=== PATIENT | female | born 1950 | race Caucasian/White ===

== ENCOUNTER → 2017-09-22 | Outpatient (CLI) | payer MEDICARE ==
[~2017-09-22] MED LIST: LASIX 40MG TABL40 MG PO; MOTRIN 200200 MG/TAB PO; SYNTHROID0.05 MG/TA PO; SYNTHROID0.2 MG/TAB PO
== END ==
LOC: MHCPAIN 10:49
DX: G89.29 Other chronic pain (principal); M47.817 Spondylosis without myelopathy or radiculopathy, lumbosacral region; M54.16 Radiculopathy, lumbar region; M53.3 Sacrococcygeal disorders, not elsewhere classified
CPT/HCPCS: G0463

== ENCOUNTER → 2017-09-22 | Outpatient (CLI) | payer MEDICARE | LOC: COL.RAD 11:48 | DX: M16.11 Unilateral primary osteoarthritis, right hip (principal) ==

== ENCOUNTER → 2017-10-27 | Outpatient (CLI) | payer MEDICARE | LOC: MHCPAIN 08:47 | DX: G89.29 Other chronic pain (principal); M47.817 Spondylosis without myelopathy or radiculopathy, lumbosacral region; M54.16 Radiculopathy, lumbar region; M53.3 Sacrococcygeal disorders, not elsewhere classified; M47.814 Spondylosis without myelopathy or radiculopathy, thoracic region; M25.551 Pain in right hip | CPT/HCPCS: G0463 ==

== ENCOUNTER → 2017-11-05 | Outpatient (CLI) | payer MEDICARE | LOC: MHCPAIN 10:19 | DX: M47.817 Spondylosis without myelopathy or radiculopathy, lumbosacral region (principal) | CPT/HCPCS: J1040; Q9967 ==

== ENCOUNTER → 2017-11-16 | Outpatient (CLI) | payer MEDICARE | LOC: MHCPAIN 10:35 | DX: G89.29 Other chronic pain (principal); M47.817 Spondylosis without myelopathy or radiculopathy, lumbosacral region; M54.16 Radiculopathy, lumbar region; M53.3 Sacrococcygeal disorders, not elsewhere classified | CPT/HCPCS: G0463 ==

== ENCOUNTER → 2017-11-26 | Outpatient (CLI) | payer MEDICARE | LOC: MHCPAIN 10:32 | DX: M47.817 Spondylosis without myelopathy or radiculopathy, lumbosacral region (principal); M54.16 Radiculopathy, lumbar region | CPT/HCPCS: J1100; Q9967 ==

== ENCOUNTER → 2017-12-29 | Outpatient (CLI) | payer MEDICARE | LOC: COL.RAD 13:39 | DX: M17.0 Bilateral primary osteoarthritis of knee (principal) ==

== ENCOUNTER → 2017-12-29 | Outpatient (CLI) | payer MEDICARE | LOC: MHCPAIN 12:35 | DX: G89.29 Other chronic pain (principal); M47.817 Spondylosis without myelopathy or radiculopathy, lumbosacral region; M54.16 Radiculopathy, lumbar region; M53.3 Sacrococcygeal disorders, not elsewhere classified; M47.814 Spondylosis without myelopathy or radiculopathy, thoracic region; M48.061 Spinal stenosis, lumbar region without neurogenic claudication | CPT/HCPCS: G0463 ==

== ENCOUNTER → 2018-01-07 | Outpatient (CLI) | payer MEDICARE | LOC: MHCPAIN 12:41 | DX: M17.0 Bilateral primary osteoarthritis of knee (principal) | CPT/HCPCS: J1040; Q9967 ==

== ENCOUNTER → 2018-03-30 | Outpatient (CLI) | payer MEDICARE | LOC: MHCPAIN 12:25 | DX: G89.29 Other chronic pain (principal); M47.817 Spondylosis without myelopathy or radiculopathy, lumbosacral region; M54.16 Radiculopathy, lumbar region; M53.3 Sacrococcygeal disorders, not elsewhere classified; M48.061 Spinal stenosis, lumbar region without neurogenic claudication | CPT/HCPCS: G0463 ==

== ENCOUNTER → 2018-08-25 | Outpatient (CLI) | payer MEDICARE | LOC: MC.RAD 08:06 | DX: Z12.31 Encounter for screening mammogram for malignant neoplasm of breast (principal) ==

== ENCOUNTER 2019-05-08 17:29 | Inpatient (IN) | payer MEDICARE ==
[~2019-05-08] VITALS: Ht 160 cm; Wt 82.7 kg
[2019-05-08 18:16] LABS: BASO # 0.1 (0.0-0.2); BASO % 0.7 % (0.0-2.0); EOS # 0.1 (0.0-0.7); EOS % 0.6 % (0-4.0); GRAN # 8.7 (1.4-6.5); GRAN % 80.6 % (42.2-75.2); HEMOGLOBIN 10.7 g/dl (12.5-16.0); LYMPH # 1.3 (1.2-3.4); MEAN CELL VOLUME 77 fl (80.0-100.0); MEAN CORPUSCULAR HEMOGLOBIN 23 pg (27.0-31.0); MEAN CORPUSCULAR HGB CONC 30 g/dl (33.0-37.0); MEAN PLATELET VOLUME 9.2 fl (7.4-10.4); MONO # 0.6 (0.1-0.6); MONO % 5.7 % (1.7-9.3); PLATELET COUNT 514 K/mm3 (130-400); RED BLOOD COUNT 4.59 M/mm3 (4.10-5.30); REDCELL DISTRIBUTION WIDTH-CV 15.5 % (11.5-14.5)
[2019-05-08 18:17] LABS: HEMATOCRIT 35.3 % (37.0-47.0)
[2019-05-08 18:30] LABS: ALBUMIN 4.3 gm/dL (3.5-5.0); BILIRUBIN,TOTAL 0.5 mg/dL (0.0-1.0); CALCIUM 9.7 mg/dL (8.4-10.2); CREATININE, serum 0.94 (0.52-1.25); POTASSIUM 3.8 mmol/L (3.4-5.0); TOTAL PROTEIN 8.5 gm/dL (6.4-8.2)
[2019-05-08] MEDS ORDERED: TYLENOL 500MG500 MG PO (18:34)
[2019-05-08] MEDS ORDERED: CALCIUM 600MG+D1 TAB PO (18:34)
[2019-05-08] MEDS ORDERED: ULTRAM 50MG TAB50 MG PO (18:36)
[2019-05-08] MEDS ORDERED: SYNTHROID 0.0.025 MG PO (18:36)
[2019-05-08] MEDS ORDERED: VITAMIN B COMPL1 SGL PO (18:37)
[2019-05-08 21:00] LABS: COLLECTION METHOD CLEAN CATCH
[2019-05-08 21:09] LABS: MUCOUS Present /lpf; PH 6 (5-8); URINE APPEARANCE Cloudy; URINE BACTERIA None Seen /hpf; URINE BILIRUBIN Negative (NEGATIVE); URINE BLOOD 1+ (NEGATIVE); URINE COLOR Yellow; URINE GLUCOSE Negative (NEGATIVE); URINE KETONE 2+ (NEGATIVE); URINE LEUKOCYTE ESTERASE 3+ (NEGATIVE); URINE NITRATE Positive (NEGATIVE); URINE PROTEIN(semi-quant) 1+ (NEGATIVE); URINE RBC 20-50 /hpf; URINE UROBILINOGEN Negative (NEGATIVE)
[2019-05-09] VITALS (16 sets, daily range): BP systolic 140–174; BP diastolic 55–88; PULSE 75–93; TEMP 97.5–98.7
--- NOTE | 2019-05-09 01:30 | NUR ---
REPORT RECEIVED FROM JOSE IRIZARRY RN. PT TO ROOM 322 PER BED. ORIENTED X4 DROWSY. IN OBVIOUS PAIN. VSS. ABD DRSG HAS SMALL AMT OF BLOODY DRG NOTED.
--- NOTE | 2019-05-09 01:40 | NUR ---
PRIOR TO DIESEL ENGINE ERECTOR SETUP GAVE MS 1MG IV. FAMILY AT BEDSIDE. VERY SUPPORTIVE. PT DENIES NAUSE. LEIVA DRAINING FREELY SL CLOUDY YELLOW RETURN.
--- NOTE | 2019-05-09 02:15 | NUR ---
MS MOWER SHARPENER SET UP AND PT/ FAMILY INSTRUCTED ON PROPER USE. ALL VERBALIZED UNDERSTANDING.
--- NOTE | 2019-05-09 03:00 | NUR ---
LAB CALLED [facility] ALREADY COLLECTED IN ER. RESULTS PENDING.
--- NOTE | 2019-05-09 03:26 | NUR ---
PT RESTING COMFORTABLY AT THS TIME. NO INCREASE IN ABD DRSG DRAINAGE. SUPERVISING CHEF MS CONTROLLING PAIN.
--- NOTE | 2019-05-09 04:15 | NUR ---
PT RESTING FAIRLY COMFORTABLE. USING METAL NEUTRALIZER APRROPRIATELY. LEIVA DRAINING YELLOW SL CLOUDY URINE. UO- 350CC AT THIS TIME NO FOUL ODOR. NO FURTHER DRAINAGE TO ABD DILAN. ENC FREQ COUGH DEEP BREATH. DAUGHTER AT BEDSIDE. VERY SUPPORTIVE.
--- NOTE | 2019-05-09 05:48 | NUR ---
PT STILL RESTING COMFORTABLY AT THIS TIME. NO RESP DISTRESS. DENIES NEEDS.
--- NOTE | 2019-05-09 07:00 | NUR ---
Dr Barragan here to see patient.
[2019-05-09 07:53] LABS: HEMATOCRIT 30.3 % (37.0-47.0)
[2019-05-09 08:10] LABS: CALCIUM 8.1 mg/dL (8.4-10.2); CREATININE, serum 0.78 (0.52-1.25); POTASSIUM 4.3 mmol/L (3.4-5.0)
--- NOTE | 2019-05-09 09:00 | NUR ---
Patient alert and oriented, answers questions appropriately. See assessment. Abdomen soft, non tender, non distended. Bowel sounds hypoactive x4 quads. No flatus. Midline incision with dressing CDI. CERAMIST Morphine, settings verified against the MAR. Post op exercises reviewed with patient. No c/o at this time.
--- NOTE | 2019-05-09 11:06 | NUR ---
Dr Rosales here to see patient, to surgery at this time.
--- NOTE | 2019-05-09 15:38 | NUR ---
Reception Centre Manager met with the patient to discuss discharge planning. Patient lives in [place] with her daughter Gladis (ph#[phone]) and her seventeen year old grandson. Patient sees Dr. Gonzalez for primary care and obtains medications from [facility] with no difficulties. Patient does not use any DME and reports independence with ADLS. Patient states in the near future, she will need hip surgery. Patient does not have Advance Directives in place. Patient is interested in setting them up but wants to speak with her family first. SW will follow up when patient is ready. Patient plans to return home upon discharge. SW to continue to follow.
[2019-05-09 17:25] LABS: HEMATOCRIT 28.2 % (37.0-47.0); HEMOGLOBIN 8.5 g/dl (12.5-16.0)
--- NOTE | 2019-05-09 17:34 | NUR ---
PT REFUSING INSENTIVE SPIROMETER AT TODAY. PT IS IN TOO MUCH PAIN. RN AWARE
--- NOTE | 2019-05-09 20:00 | NUR ---
Shift assessment complete. Patient in bed, awake. Daughter at bedside. States pain is 8/10. Patient states she is tolerating that level of pain, and does not need to administer a bolus. When she grimaced, her daughter pushed the SENIOR SPEECH PATHOLOGIST button and administered a bolus. Educated daughter in regards to appropriate use of the SENIOR SPEECH PATHOLOGIST. The patient is the only person that is supposed to be administering the medication. Daughter stated she did not know this, and was very apologetic and embarrassed. She verbalized understanding, as did the patient. Denies further needs at this time. Will continue to monitor.
--- NOTE | 2019-05-09 23:27 | NUR ---
Patient in bed, awake, talking. Repositioned to left side with pillow support. Tolerated fairly well. 84% on 2L O2. Oxygen increased to 4L. Will recheck and notify RT. Daughter at bedside.
--- NOTE | 2019-05-09 23:30 | NUR ---
Patient in bed, awake. Daughter at bedside. States pain 8/10, but tolerable. Repositioned in bed with pillow support. States she wants to get up and move, but she is scared of the pain. Emotional support given. Educated patient and daughter on the importance of ambulating after surgery. Also educated patient on importance of C&DB and the use of IS. Patient verbalized understanding, but is too uncomfortable to attempt right now. Denies further needs at this time. Will continue to monitor.
[2019-05-10] VITALS (9 sets, daily range): BP systolic 116–142; BP diastolic 45–78; PULSE 83–93; TEMP 98.8–101.1
--- NOTE | 2019-05-10 03:30 | NUR ---
Patient in bed, awake. Daughter at bedside. States pain 8/10, but tolerable. Denies further needs at this time. Will continue to monitor.
[2019-05-10 07:16] LABS: HEMATOCRIT 27.2 % (37.0-47.0); HEMOGLOBIN 7.9 g/dl (12.5-16.0)
[2019-05-10 07:30] LABS: CALCIUM 8.1 mg/dL (8.4-10.2); CREATININE, serum 0.76 (0.52-1.25); POTASSIUM 4.3 mmol/L (3.4-5.0)
--- NOTE | 2019-05-10 10:30 | NUR ---
Patient alert and oriented, answers questions appropriately. See assessment. Abdomen soft, non distended. Bowel sounds active x4 quads. No flatus. Midline incision with edges well approximated, no redness or drainage noted. Aaron catheter patent and draining clear tasneem urine. ARMATURE BALANCER infusing, settings verified against the MAR. Patient daughter noted to be pushing ARMATURE BALANCER button when she feels patient is uncomfortable. Reinforced to patient and daughter that patient only is to push button. Encouraged patient to get OOB and increase activity. Post op exercises encouraged.
--- NOTE | 2019-05-10 10:40 | NUR ---
Dr Barragan here to see patient.
--- NOTE | 2019-05-10 12:15 | NUR ---
Initial visit; Patient thanked Area Plant Manager introducing herself and offering God's blessings.
[2019-05-10 17:31] LABS: BASO % 0.3 % (0.0-2.0); EOS % 0.2 % (0-4.0); GRAN # 10.1 (1.4-6.5); GRAN % 80.2 % (42.2-75.2); HEMATOCRIT 26.7 % (37.0-47.0); HEMOGLOBIN 7.9 g/dl (12.5-16.0); LYMPH # 1.5 (1.2-3.4); LYMPH % 11.6 % (20.0-51.0); MEAN CELL VOLUME 78 fl (80.0-100.0); MEAN CORPUSCULAR HEMOGLOBIN 23 pg (27.0-31.0); MEAN CORPUSCULAR HGB CONC 30 g/dl (33.0-37.0); MEAN PLATELET VOLUME 8.9 fl (7.4-10.4); MONO # 0.9 (0.1-0.6); MONO % 7.3 % (1.7-9.3); RED BLOOD COUNT 3.42 M/mm3 (4.10-5.30); REDCELL DISTRIBUTION WIDTH-CV 15.9 % (11.5-14.5)
[2019-05-10 17:32] LABS: PLATELET COUNT 347 K/mm3 (130-400)
--- NOTE | 2019-05-11 00:35 | NUR ---
Patient drowsy on APPLICATIONS TRAINER. Discussed with patient and family member the importance of patient being the only one to push the button. Both verbalize understanding. Abdominal incision open to air, collins, clean, dry and intact. Patient has nj at this time. Discussed with patient the need to ambulate in room.
[2019-05-11 03:55] VITALS: BP 135/72; PULSE 99; TEMP 100.1
[2019-05-11 06:53] LABS: BASO % 0.3 % (0.0-2.0); EOS # 0.1 (0.0-0.7); EOS % 0.8 % (0-4.0); GRAN # 9.1 (1.4-6.5); LYMPH # 1.1 (1.2-3.4); LYMPH % 10.1 % (20.0-51.0); MEAN CELL VOLUME 78 fl (80.0-100.0); MEAN CORPUSCULAR HGB CONC 29 g/dl (33.0-37.0); MEAN PLATELET VOLUME 9.5 fl (7.4-10.4); MONO # 0.8 (0.1-0.6); MONO % 7.3 % (1.7-9.3); PLATELET COUNT 337 K/mm3 (130-400); RED BLOOD COUNT 3.37 M/mm3 (4.10-5.30); REDCELL DISTRIBUTION WIDTH-CV 15.8 % (11.5-14.5)
[2019-05-11 07:10] LABS: HEMATOCRIT 26.4 % (37.0-47.0); HEMOGLOBIN 7.7 g/dl (12.5-16.0); MEAN CORPUSCULAR HEMOGLOBIN 23 pg (27.0-31.0)
[2019-05-11 08:00] VITALS: BP 126/76; PULSE 93; TEMP 101.6
--- NOTE | 2019-05-11 08:00 | NUR ---
Patient resting in bed at this time, daughter at bedside. Patient is sleeping, but rouses easily. Morphine METER READER in place per order. Patient reports that pain is well controlled. Aaron in place per order draining clear dark yellow urine. Patient denies needs at this time, call light within reach.
--- NOTE | 2019-05-11 09:17 | NUR ---
Follow-up visit; Patient and family thanked Pressure Vessel Inspector for looking in on her again today and stated that Laura had a good night and is feeling better this morning. Pressure Vessel Inspector wished her continued healing.
[2019-05-11 12:13] VITALS: BP 142/75; PULSE 101; TEMP 99.2
[2019-05-11 16:34] VITALS: BP 150/74; PULSE 94; TEMP 99.7
--- NOTE | 2019-05-11 18:07 | NUR ---
Patient resting in bed at this time. Patient rouses easily. Patient reports nausea, PRN nausea medication administered per order. Nj d/c'd per order, 10ml water removed from balloon, nj and balloon removed intact. Patient tolerated procedure well. Patient denies further needs at this time, call light within reach.
[2019-05-11 19:14] VITALS: BP 132/73; PULSE 95; TEMP 100.1
--- NOTE | 2019-05-11 20:30 | NUR ---
ASSISTED TO BSC TO URINATE, HAS SMALL LOOSE BROWN STOOL WELL. TRANSFERS FAIR, NEEDS MUCH ENCOURAGEMENT WITH DEEP BREATHING AND NOT TO HOLD HER BREATH WITH ACTIVITY. IVF TO RIGHT AC WITHOUT REDNESS OR SWELLING. NO PERIPHERAL EDEMA NOTED. MIDLINE INCISION RAISE MINER WITH LITA INTACT. BOWEL SOUNDS HYPOACTIVE.
--- NOTE | 2019-05-11 20:58 | NUR ---
MEDICATED WITH DILAUDID 0.5MG IVP FOR PAIN 8/10 TO BACK.
--- NOTE | 2019-05-11 22:15 | NUR ---
MEDICATED WITH OXYCODONE 5MG PO FOR PAIN TO BACK 10/20.
[2019-05-11 23:18] VITALS: BP 158/82; PULSE 90; TEMP 99.8
--- NOTE | 2019-05-12 01:40 | NUR ---
Patient has small amount of green emesis. Assisted to BSC, voids and has small loose brown stool. To recliner at bedside after using BSC.
--- NOTE | 2019-05-12 02:18 | NUR ---
PATIENT REMAINS UP IN CHAIR. HAVING ALOT OF BELCHING, NO FLATUS. REPORTS PAIN 8/10 TO BACK AND HIP. DILAUDID 0.5MG IVP NOW, OFFERED ES TYLENOL PT THINKS OXYCODONE MAKES HER NAUSEATED, SHE DID NOT TAKE THE TYLENOL AT THIS TIME.
--- NOTE | 2019-05-12 03:33 | NUR ---
Pt in bed at this time.
[2019-05-12 03:56] VITALS: BP 148/82; PULSE 87; TEMP 98
--- NOTE | 2019-05-12 04:10 | NUR ---
MEDICATED WITH DILAUDID 0.5MG IVP FOR PAIN 8/10 TO BACK/SHOULDERS. DOES NOT WANT TO TRY THE OXYCODONE SINCE SHE FEELS THIS MAKES HER NAUSEATED.
--- NOTE | 2019-05-12 06:10 | NUR ---
MEDICATED WITH DILAUDID 0.5MG IVP FOR BACK PAIN 11/20.
[2019-05-12 07:24] LABS: BASO % 0.2 % (0.0-2.0); EOS % 0.1 % (0-4.0); GRAN # 10.2 (1.4-6.5); GRAN % 87.1 % (42.2-75.2); HEMATOCRIT 25.1 % (37.0-47.0); HEMOGLOBIN 7.5 g/dl (12.5-16.0); LYMPH # 0.7 (1.2-3.4); LYMPH % 5.9 % (20.0-51.0); MEAN CELL VOLUME 77 fl (80.0-100.0); MEAN CORPUSCULAR HEMOGLOBIN 23 pg (27.0-31.0); MEAN CORPUSCULAR HGB CONC 30 g/dl (33.0-37.0); MEAN PLATELET VOLUME 9.8 fl (7.4-10.4); MONO # 0.7 (0.1-0.6); MONO % 6.2 % (1.7-9.3); PLATELET COUNT 341 K/mm3 (130-400); RED BLOOD COUNT 3.26 M/mm3 (4.10-5.30); REDCELL DISTRIBUTION WIDTH-CV 15.7 % (11.5-14.5)
[2019-05-12 07:31] VITALS: BP 148/74; PULSE 84; TEMP 98.3
--- NOTE | 2019-05-12 08:00 | NUR ---
Patient resting in bedside chair at this time. Patient is alert and oriented, answers questions appropriately. Patient reports that her pain is controlled at this time, denies nausea. Abdominal incision is well approximated, collins intact. Patient denies needs at this time, family at bedside, call light within reach.
[2019-05-12 11:07] VITALS: BP 139/79; PULSE 90; TEMP 98.7
[2019-05-12 15:57] VITALS: BP 145/72; PULSE 80; TEMP 98.5
--- NOTE | 2019-05-12 19:07 | NUR ---
Patient resting in bed at this time, family at bedside. Patient reports she is having back pain and requests a muscle relaxer. Patient did not eat much of her dinner but denies hunger. Patient denies further needs at this time, call light within reach.
[2019-05-12 19:41] VITALS: BP 188/88; PULSE 98; TEMP 98.7
--- NOTE | 2019-05-12 20:10 | NUR ---
Pt. sitting up in bed with family at bedside. Pt. is A&OX3, assessment complete. IV to rt. AC patent, IV fluids infusing per orders. Pt. reports pain at an 8 at this time. Gave pain meds per orders. Pt. denies further needs, call light within reach.
[2019-05-12 22:20] VITALS: BP 157/79; PULSE 73; TEMP 98.3
[2019-05-13 08:23] VITALS: BP 150/71; PULSE 77; TEMP 99.3
--- NOTE | 2019-05-13 10:42 | NUR ---
Patient alert & oriented. rounded. Ct scan completed. Increases in pain medication has seemed to relieve her pain. Patient family attentive at bedside. SHower taken. Po intake encouraged, Iv to Int.
[2019-05-13 12:09] VITALS: BP 136/75; PULSE 83; TEMP 98.3
--- NOTE | 2019-05-13 16:08 | NUR ---
timber mill worker met with patient's daughter, Nely, and provided living will and durable power of civil litigation attorney for health care as patient indicated earlier that she would want to complete. 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
[2019-05-13 16:38] VITALS: BP 150/86; PULSE 84; TEMP 97.2
[2019-05-13] MEDS ORDERED: NORCO 325 MG-7.1 TAB PO (17:38)
--- NOTE | 2019-05-13 17:49 | NUR ---
Patient has done well today, rested this afternoon. rounded, possible discharge home tmrw. Family remains attentive at bedside. Continue to encourgaed po intake, patient has done well increasing her activity & ambulting the halls with walker.
[2019-05-13 19:38] VITALS: BP 145/79; PULSE 77; TEMP 98.2
--- NOTE | 2019-05-13 19:59 | NUR ---
PATIENT SITTING UP IN CHAIR, REPORTS PAIN 8/10 TO BACK. MEDICATED WITH NORCO 7.5MG 1 TAB WITH FLEXERIL 10MG PO FOR DISCOMFORT. LUNGS SOUND CLEAR. ABDOMEN SOFT WITH LITA INTACT TO MIDLINE. SL TO RIGHT WRIST WITHOUT REDNESS OR SWELLING. PATIENT REPORTS FEELING MUCH BETTER.
[2019-05-13 23:30] VITALS: BP 126/76; PULSE 97; TEMP 98.5
--- NOTE | 2019-05-13 23:37 | NUR ---
PATIENT UP IN CHAIR, REPORTS PAIN 8/10 TO BACK. MEDICATED WITH NORCO 7.5MG PO AT THIS TIME. FAMILY AT BEDSIDE.
[2019-05-14 03:48] VITALS: BP 145/69; PULSE 82; TEMP 98
--- NOTE | 2019-05-14 04:00 | NUR ---
Patient awake, no concerns voiced at this time.
--- NOTE | 2019-05-14 05:45 | NUR ---
MEDICATED WITH NORCO 7.5 1 TAB PO AND FLEXERIL 10MG PO FOR PAIN TO BACK 11/20.
[2019-05-14 07:48] VITALS: BP 150/79; PULSE 97; TEMP 97.7
[2019-05-14 12:20] VITALS: BP 151/90; PULSE 91; TEMP 97.6
[2019-05-14 17:00] VITALS: BP 136/82; PULSE 98; TEMP 97.6
--- NOTE | 2019-05-14 18:00 | NUR ---
States had more pain today. Appetite fair. Having bowel movements. Ambulatory in room with assist of family. [place] and Fexeril given for c/o incisional and back pain.
[2019-05-14 19:15] VITALS: BP 152/80; PULSE 80; TEMP 98
--- NOTE | 2019-05-14 21:02 | NUR ---
PATIENT REPORTS NAUSEA, MEDICATED WITH ZOFRAN 4MG IVP, ALSO REPORTS PAIN TO BACK, FLEXERIL PO GIVEN WITH IV DILAUDID 0.5MG. PATIENT SITTING UP IN CHAIR, FAMILY AT BEDSIDE.
--- NOTE | 2019-05-14 21:25 | NUR ---
SPOKE WITH DR GLASS REGARDING PATIENT FEELING ANXIOUS AND RESTLESS. ONE TIME DOSE OF ATIVAN 0.5MG PO ORDERED.
--- NOTE | 2019-05-14 21:30 | NUR ---
ATIVAN 0.5MG PO GIVEN. LUNGS WITH MILD CRACKLES TO BASES, OTHERWISE CLEAR. ABD SOFT, BOWEL SOUNDS ACTIVE, LITA INTACT. VOIDING WITHOUT PROBLEM. DENIES NAUSEA NOW SINCE ZOFRAN GIVEN. WILL MONITOR FOR CHANGES.
--- NOTE | 2019-05-14 22:00 | NUR ---
PATIENT IN BED, RESTING WITH EYES CLOSED. FAMILY AT BEDSIDE.
[2019-05-14 23:14] VITALS: BP 143/79; PULSE 80; TEMP 98.7
[2019-05-15 02:57] VITALS: BP 142/64; PULSE 80; TEMP 98.2
--- NOTE | 2019-05-15 03:18 | NUR ---
ASKING FOR PAIN MEDS, WANTS THE IV DILAUDID. GIVEN AT THIS TIME FOR PAIN 8/10 TO BACK. WILL MONITOR FOR CHANGES.
--- NOTE | 2019-05-15 06:40 | NUR ---
awake resting in bed, bedside shift report received from MICHAEL Garcia
--- NOTE | 2019-05-15 08:00 | NUR ---
awake and assisted up to bathroom, c/o pain to right hip and back, minimal pain to abdomen, medicated with hydrocodone 5mg 1 tab, out of bathroom and sitting up in chair for breakfast
[2019-05-15 08:41] VITALS: BP 148/83; PULSE 99; TEMP 97.7
--- NOTE | 2019-05-15 08:45 | NUR ---
assisted back to bed by sister, full assessment completed, see interventions for further info, requesting to rest in bed for a while for hip and back pain to subside and then will get up and ambulate in the jensen
--- NOTE | 2019-05-15 09:30 | NUR ---
Dr Garay in to see patient, am meds given and patient tolerates well
--- NOTE | 2019-05-15 11:00 | NUR ---
up in recliner and appears to be dozing, eyes closed, resp quiet and easy
--- NOTE | 2019-05-15 11:45 | NUR ---
c/o some pain and medicated with hydrocodone 5mg 1 tab and flexeril 10mg per patient's request
[2019-05-15 12:06] VITALS: BP 152/83; PULSE 89; TEMP 97.8
--- NOTE | 2019-05-15 13:00 | NUR ---
back in bed after lunch and resting, states relief from pain pill and flexeril
--- NOTE | 2019-05-15 14:15 | NUR ---
had shower and tolerated well, bedside shift report given to MICHAEL Hayes
[2019-05-15 17:12] VITALS: BP 119/69; PULSE 83; TEMP 97.7
--- NOTE | 2019-05-15 18:00 | NUR ---
Complained of pain and nausea this PM. Medications given with relief. States had a better appetite today.
[2019-05-15 19:14] VITALS: BP 152/82; PULSE 80; TEMP 98.2
[2019-05-15 23:29] VITALS: BP 145/75; PULSE 83; TEMP 97.9
[2019-05-16 04:00] VITALS: BP 133/75; PULSE 98; TEMP 98.2
[2019-05-16 07:48] VITALS: BP 133/74; PULSE 78; TEMP 97.6
--- NOTE | 2019-05-16 09:17 | NUR ---
Patient resting in bed, family at bedside. Patient rouses easily and is alert and oriented while awake, answers questions appropriately. Midline incision is well approximated with collins intact, no redness or drainage noted. Breakfast is at bedside, patient states that she does not think she wants it, but will try to eat some of it later. Patient denies pain or further needs at this time, call light within reach.
[2019-05-16 11:28] VITALS: BP 122/81; PULSE 81; TEMP 98.2
--- NOTE | 2019-05-16 15:09 | NUR ---
The patient is to discharge back home today, 2/3. SW presented and explained the IM form to the patient. The patient verbalized understanding, signed, and she was provided a copy. No additional needs at this time.
--- NOTE | 2019-05-16 15:58 | NUR ---
Discharge teaching completed. Discharge instructions, follow up appointments, referrals, medication changes, and education on diet were discussed. Patient and family verbalized understaning and denied questions. INT removed, catheter intact, hemostasis achieved. Patient escorted to ED entrance via wheelchair, where she entered a private vehicle.
== END 2019-05-16 16:03 | disposition home or self-care (01) | DRG 327 ==
LOC: COL.ER 17:29 → SURG 05-09 00:01
PROVIDERS: Family Medicine; ADMIT Surgery
PROC: 0DTL0ZZ Resection of Transverse Colon, Open Approach (ICD-10-PCS; principal; 2019-05-09)
PROC: 0DB60ZZ Excision of Stomach, Open Approach (ICD-10-PCS; 2019-05-09)
PROC: 0D1B0ZH Bypass Ileum to Cecum, Open Approach (ICD-10-PCS; 2019-05-09)
DX: C18.4 Malignant neoplasm of transverse colon (principal); N39.0 Urinary tract infection, site not specified; C77.2 Secondary and unspecified malignant neoplasm of intra-abdominal lymph nodes; C78.89 Secondary malignant neoplasm of other digestive organs; B96.20 Unspecified Escherichia coli [E. coli] as the cause of diseases classified elsewhere; D50.9 Iron deficiency anemia, unspecified; E03.9 Hypothyroidism, unspecified; Z90.49 Acquired absence of other specified parts of digestive tract; Z90.710 Acquired absence of both cervix and uterus
CPT/HCPCS: A4216; A4314; A9284; J0330; J0696; J1100; J1170; J1650; J2270; J2405; J2550; J2704; J3010; J3480; J7030; Q9967

== ENCOUNTER 2019-05-27 07:25 | Day surgery (SDC) | payer MEDICARE ==
[~2019-05-27] VITALS: Ht 162.6 cm; Wt 77.0 kg
[~2019-05-27 07:25] MED LIST changes: +CALCIUM 600MG+D1 TAB PO; +NORCO 325 MG-7.1 TAB PO; +SYNTHROID 0.0.025 MG PO; +TYLENOL 500MG500 MG PO; +ULTRAM 50MG TAB50 MG PO; +VITAMIN B COMPL1 SGL PO
[2019-05-27 08:05] VITALS: BP 139/92; PULSE 80; TEMP 97.8
[2019-05-27] MEDS ORDERED: MOTRIN 800800 MG/TAB PO (08:23)
[2019-05-27] MEDS ORDERED: TIROSINT125 MC1 PO (08:24)
[2019-05-27] MEDS ORDERED: LASIX 40MG TABL40 MG PO (08:25)
[2019-05-27] MEDS ORDERED: ULTRAM 50MG TAB50 MG PO (08:27)
[2019-05-27] MEDS ORDERED: B-121000 MCG PO (08:28)
[2019-05-27] MEDS ORDERED: FEOSOL45 MG PO (08:29)
[2019-05-27 10:13] VITALS: BP 140/81; PULSE 73
--- NOTE | 2019-05-27 10:13 | NUR ---
Patient returns to room 2 per cart from surgery and is awake and alert. Temp 98.3 Room air sats 100%. Bandaid and 2x2 dressing dry on the left chest. IV fluids infusing and site is free of redness. Taking sips of water and denies pain or nausea.
[2019-05-27 10:28] VITALS: BP 150/82; PULSE 62
--- NOTE | 2019-05-27 10:28 | NUR ---
Resting and sipping on water.
[2019-05-27 10:43] VITALS: BP 151/79; PULSE 76
--- NOTE | 2019-05-27 10:43 | NUR ---
Eating muffin and drinking chocolate milk. Continues to deny pain or nausea.
--- NOTE | 2019-05-27 10:50 | NUR ---
IV discontinued and site is free of redness. Patient dresses self and dressing on the left port a catheter insertion site dry.
--- NOTE | 2019-05-27 11:09 | NUR ---
Dismissal instructions given and voices understanding of these. Instructed to resume home medications. Provided office number for questions and concerns.
--- NOTE | 2019-05-27 11:20 | NUR ---
Patient dismissed to home driven by family and taken to the front door per wheelchair and assisted into vehicle by this RN with dismissal instructions in hand.
== END 2019-05-27 11:20 | disposition home or self-care (01) ==
LOC: SDCO 07:25
DX: C18.4 Malignant neoplasm of transverse colon (principal); C77.2 Secondary and unspecified malignant neoplasm of intra-abdominal lymph nodes; C78.89 Secondary malignant neoplasm of other digestive organs; E03.9 Hypothyroidism, unspecified; Z79.899 Other long term (current) drug therapy; Z80.9 Family history of malignant neoplasm, unspecified; Z90.3 Acquired absence of stomach [part of]; Z90.49 Acquired absence of other specified parts of digestive tract; G89.29 Other chronic pain
CPT/HCPCS: C1788; J0690; J1644; J2704; J7120

== ENCOUNTER → 2019-06-09 | Outpatient (CLI) | payer MEDICARE ==
[~2019-06-09] MED LIST changes: +B-121000 MCG PO; +FEOSOL45 MG PO; +MOTRIN 800800 MG/TAB PO; +TIROSINT125 MC1 PO
== END ==
LOC: COL.RAD 07:57
DX: Z01.812 Encounter for preprocedural laboratory examination (principal); C18.4 Malignant neoplasm of transverse colon; Z98.890 Other specified postprocedural states
CPT/HCPCS: Q9967

== ENCOUNTER 2019-11-18 12:45 | Outpatient (RCR) | payer MEDICARE, OTHER ==
[2019-12-16] MEDS ORDERED: CLARITIN 1010 MG/TAB PO (13:12)
== END 2020-01-24 | disposition home or self-care (01) ==
LOC: MKS.ESL.PT
DX: I89.0 Lymphedema, not elsewhere classified (principal)

== ENCOUNTER → 2019-12-21 | Outpatient (CLI) | payer MEDICARE ==
[2019-12-21] VITALS (26 sets, daily range): BP systolic 118–202; BP diastolic 73–116; PULSE 60–80
[~2019-12-21] VITALS: Ht 165.1 cm; Wt 77.7 kg
[~2019-12-21] MED LIST changes: +CLARITIN 1010 MG/TAB PO
[2019-12-21 13:20] LABS: PROTHROMBIN TIME 11.7 SECONDS (9.7-12.8)
== END ==
LOC: COL.RAD 12:33
PROVIDERS: Internal Medicine
DX: C18.4 Malignant neoplasm of transverse colon (principal); K76.89 Other specified diseases of liver

== ENCOUNTER → 2020-10-17 | Outpatient (CLI) | payer MEDICARE | LOC: COL.RAD 08:00 | DX: C18.4 Malignant neoplasm of transverse colon (principal); K76.89 Other specified diseases of liver; Z90.710 Acquired absence of both cervix and uterus; Z96.641 Presence of right artificial hip joint | CPT/HCPCS: Q9967 ==

== ENCOUNTER 2020-12-28 11:15 | Outpatient (RCR) | payer MEDICARE | END 2021-01-01 | disposition home or self-care (01) | LOC: WSC | DX: M16.11 Unilateral primary osteoarthritis, right hip (principal) ==

== ENCOUNTER → 2021-01-08 | Outpatient (CLI) | payer MEDICARE | LOC: COL.RAD 09:56 | DX: R59.0 Localized enlarged lymph nodes (principal); C18.4 Malignant neoplasm of transverse colon; Z98.890 Other specified postprocedural states; Z90.49 Acquired absence of other specified parts of digestive tract; Z96.641 Presence of right artificial hip joint; Z96.89 Presence of other specified functional implants | CPT/HCPCS: Q9967 ==

== ENCOUNTER 2021-03-04 10:30 | Outpatient (RCR) | payer MEDICARE | END 2021-04-02 | disposition home or self-care (01) | LOC: WSPT | DX: M17.12 Unilateral primary osteoarthritis, left knee (principal) ==

== ENCOUNTER → 2022-01-08 | Outpatient (CLI) | payer MEDICARE | LOC: COL.RAD 08:00 | DX: Z08 Encounter for follow-up examination after completed treatment for malignant neoplasm (principal); Z85.038 Personal history of other malignant neoplasm of large intestine; Z90.49 Acquired absence of other specified parts of digestive tract; Z96.641 Presence of right artificial hip joint; Z90.710 Acquired absence of both cervix and uterus | CPT/HCPCS: Q9967 ==

== ENCOUNTER 2022-05-06 09:23 | Day surgery (SDC) | payer MEDICARE ==
[~2022-05-06] VITALS: Ht 167.6 cm; Wt 83.3 kg
[2022-05-06 09:49] VITALS: BP 157/98; PULSE 67; TEMP 98.1
[2022-05-06] MEDS ORDERED: TYLENOL 8 HR PO (10:00)
[2022-05-06] MEDS ORDERED: NORVASC 10MG10 MG PO (10:00)
[2022-05-06 11:05] VITALS: BP 126/87; PULSE 61; TEMP 98.1
--- NOTE | 2022-05-06 11:05 | NUR ---
1105 PATIENT RETURNS TO ROOM 5 VIA CART. PATIENT IS ALERT AND ORIENTED. RESPIRATIONS EVEN AND UNLABORED. PATIENT AMBULATES BACK TO RECLINER IN ROOM WITH THE ASSISTANCE OF 2 NURSES. PATIENT FRIEND IS IN ROOM. VITAL SIGNS OBTAINED. NO C/O PAIN. 1108 PATIENT REQUEST MUFFIN AND WATER. NO DIFFICULTIES SWALLOWING. NO C/O NAUSEA. 1114 DOCTOR IN TO SPEAK WITH PATIENT. 1120 THIS NURSE WENT OVER DISCHARGE INSTRUCTIONS WITH PATIENT. PATIENT VERBALIZED UNDERSTANDING. 1125 THIS NURSE DC IV FROM RIGHT HAND WITH NO DIFFICULTIES. 1130 PATIENT DRESSES SELF. 1135 PATIENT DISCHARGES FROM UNIT VIA WHEELCHAIR.
[2022-05-06 11:15] VITALS: BP 138/84; PULSE 54
[2022-05-06 11:30] VITALS: BP 148/90; PULSE 55
== END 2022-05-06 11:35 | disposition home or self-care (01) ==
LOC: SDCO 09:23
DX: Z12.11 Encounter for screening for malignant neoplasm of colon (principal); K52.9 Noninfective gastroenteritis and colitis, unspecified; K64.0 First degree hemorrhoids; R19.7 Diarrhea, unspecified; R20.8 Other disturbances of skin sensation; C78.7 Secondary malignant neoplasm of liver and intrahepatic bile duct; Z79.899 Other long term (current) drug therapy; Z98.0 Intestinal bypass and anastomosis status; Z85.038 Personal history of other malignant neoplasm of large intestine; Z85.41 Personal history of malignant neoplasm of cervix uteri; Z90.49 Acquired absence of other specified parts of digestive tract; Z96.89 Presence of other specified functional implants
CPT/HCPCS: J2704; J3010

== ENCOUNTER 2022-07-09 14:15 | Outpatient (RCR) | payer MEDICARE ==
[~2022-07-09 14:15] MED LIST changes: +NORVASC 10MG10 MG PO; +TYLENOL 8 HR PO
== END 2022-07-11 | disposition home or self-care (01) ==
LOC: WSPT
DX: Z96.651 Presence of right artificial knee joint (principal)

== ENCOUNTER 2022-07-30 15:00 | Outpatient (RCR) | payer MEDICARE | END 2022-08-10 | disposition home or self-care (01) | LOC: WSPT | DX: Z96.651 Presence of right artificial knee joint (principal) ==

== ENCOUNTER → 2023-02-09 | Outpatient (CLI) | payer MEDICARE ==
[2023-02-09 11:21] LABS: ALBUMIN 3.6 gm/dL (3.4-4.8); BILIRUBIN,TOTAL 0.3 mg/dL (0.2-1.2); CALCIUM 9.1 mg/dL (8.4-10.2); CREATININE, serum 0.93 mg/dL (0.57-1.11); HEMATOCRIT 40.7 % (37.0-47.0); HEMOGLOBIN 13.2 g/dl (12.5-16.0); MEAN CELL VOLUME 90 fl (80.0-100.0); MEAN CORPUSCULAR HEMOGLOBIN 29 pg (27-31); MEAN CORPUSCULAR HGB CONC 32 g/dl (33.0-37.0); MEAN PLATELET VOLUME 9.3 fl (7.4-10.4); PLATELET COUNT 239 K/mm3 (130-400); POTASSIUM 3.9 mmol/L (3.5-4.5); RED BLOOD COUNT 4.53 M/mm3 (4.10-5.30); REDCELL DISTRIBUTION WIDTH-CV 12.8 % (11.5-14.5); TOTAL PROTEIN 7.2 gm/dL (6.2-8.1)
[2023-02-09 13:07] LABS: BASOPHIL 1 % (0-2); EOSINOPHIL 4 % (0-4); LYMPHOCYTE 22 % (20.0-51.0); METAMYELOCYTE 2 % (0-0); NEUTROPHILS 69 % (42.0-75.2)
[2023-02-09 13:08] LABS: PLATELET ESTIMATE NORMAL (NORMAL)
== END ==
LOC: CANSCHCLI → COL.RAD 09:10
PROVIDERS: Internal Medicine
DX: Z12.11 Encounter for screening for malignant neoplasm of colon (principal); R91.1 Solitary pulmonary nodule; K76.0 Fatty (change of) liver, not elsewhere classified; Z98.890 Other specified postprocedural states; Z90.710 Acquired absence of both cervix and uterus
CPT/HCPCS: Q9967